=== PATIENT | female | born 1970 | race Caucasian/White ===

== ENCOUNTER 2020-02-10 02:50 | Emergency (ER) | payer OTHER, MEDICAID ==
[~2020-02-10] VITALS: Ht 167.6 cm; Wt 97.0 kg
--- NOTE | 2020-02-10 03:15 | NUR ---
REPORTS CHEST PAIN AND NAUSEA X2 HOURS. 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 SAFETY FALL PRECAUTIONS IN PLACE.
[2020-02-10] MEDS ORDERED: TOPI25TA8 PO (03:18)
[2020-02-10] MEDS ORDERED: SUMA25TA4 PO (03:18)
[2020-02-10] MEDS ORDERED: TRAM50TA2 PO (03:18)
[2020-02-10] MEDS ORDERED: OMEP-110 PO (03:18)
[2020-02-10] MEDS ORDERED: CITA10TA8 PO (03:18)
--- NOTE | 2020-02-10 03:24 | NUR ---
LAB AT BEDSIDE.
[2020-02-10 03:45] VITALS: BP 136/76
[2020-02-10 03:45] LABS: BASOPHILS # (AUTO) 0.03 x10^3/uL (0-0.1); BASOPHILS % (AUTO) 0 % (0-1); EOSINOPHILS # (AUTO) 0.11 x10^3/uL (0-0.4); EOSINOPHILS % (AUTO) 2 % (1-7); LYMPHOCYTES # (AUTO) 2.93 x10^3/uL (1-3.4); LYMPHOCYTES % (AUTO) 38 % (22-44); MD NO; MEAN CORPUSCULAR HEMOGLOBIN 27.7 pg (27.0-34.8); MEAN CORPUSCULAR HGB CONC 32.4 g/dL (32.4-35.8); MEAN CORPUSCULAR VOLUME 85.5 fL (80-100); MEAN PLATELET VOLUME 7.9 fL (7.4-10.4); MONOCYTES # (AUTO) 0.56 x10^3/uL (0.2-0.8); MONOCYTES % (AUTO) 7 % (2-9); NEUTROPHILS # (AUTO) 4.06 x10^3/uL (1.8-6.8); NEUTROPHILS % (AUTO) 53 % (42-75); PLATELET COUNT 295 x10^3/uL (130-400); RED BLOOD COUNT 4.35 x10^6/uL (3.82-5.3); RED CELL DISTRIBUTION WIDTH 16.1 % (9.6-15.2)
--- NOTE | 2020-02-10 03:47 | NUR ---
RESTING ON THIEN ANGELO. CALL LIGHT PLACED WITHIN REACH.
[2020-02-10 03:50] LABS: ALBUMIN 3.6 g/dL (3.4-5.0); ANION GAP 4 mmol/L (5-15); CALCIUM 8.3 mg/dL (8.5-10.1); CHLORIDE 112 mmol/L (98-107); CREATININE 1.15 mg/dL (0.55-1.02)
[2020-02-10 03:53] LABS: TROPONIN I < 0.015 ng/mL (0.000-0.045)
== END 2020-02-10 04:24 | disposition home or self-care (01) ==
LOC: ED 03:55
DX: R07.89 Other chest pain (principal); R11.0 Nausea; R00.0 Tachycardia, unspecified
CPT/HCPCS: 36415; 71045; 80048; 82040; 84484; 85025; 93005; 99285

== ENCOUNTER 2020-06-14 15:25 | Emergency (ER) | payer MEDICAID, OTHER ==
[~2020-06-14] VITALS: Ht 165.1 cm; Wt 101.2 kg
[~2020-06-14 15:25] MED LIST: CITA10TA8 PO; OMEP-110 PO; SUMA25TA4 PO; TOPI25TA8 PO; TRAM50TA2 PO
[2020-06-14] MEDS ORDERED: KETOROLAC 30 MG/1 ML IM ONE (16:30)
[2020-06-14] MEDS ORDERED: KETOROLAC 60 MG/2 ML ONE (16:40)
[2020-06-14 17:35] VITALS: BP 124/62
== END 2020-06-14 17:52 | disposition home or self-care (01) ==
LOC: ED 16:09
DX: M77.8 Other enthesopathies, not elsewhere classified (principal)
CPT/HCPCS: 73502; 96372; 99283; J1885

== ENCOUNTER → 2020-07-07 | Outpatient (CLI) | payer OTHER | END | disposition home or self-care (01) | LOC: CFH 10:19 | PROVIDERS: ATTEND Pain Medicine Interventional Pain Medicine | DX: M48.07 Spinal stenosis, lumbosacral region (principal) | CPT/HCPCS: 72114 ==